=== PATIENT | male | born 1950 | race Caucasian/White ===

== ENCOUNTER 2017-02-24 14:37 | Inpatient (IN) | payer OTHER ==
[~2017-02-24] VITALS: Ht 170.2 cm; Wt 52.7 kg
[~2017-02-24 14:37] MED LIST: LACT-215 PO
--- NOTE | 2017-02-24 14:40 | NUR ---
[id number] FROM : NOT COMPLIANT WITH PSYCHE MEDS. NOT ACTING SELF. DENIES SI/HI, NAD NOTED, VSS, RESP EVEN AND UNLABORED, PUT ON MONITOR, DR DOOLEY AT BS
[2017-02-24] MEDS ORDERED: IV NS 0.9% 1,000 ML BAG IV ONE (15:00)
[2017-02-24] MEDS ORDERED: OLAN10TA3 PO (15:03)
[2017-02-24 15:13] LABS: BASOPHILS # (AUTO) 0.2 /CMM (0.0-0.2); BASOPHILS % (AUTO) 2.4 % (0.0-2.0); EOSINOPHILS # (AUTO) 0.2 /CMM (0.0-0.7); EOSINOPHILS % (AUTO) 2.7 % (0.0-6.0); HEMATOCRIT 42 % (39-51); HEMOGLOBIN 14.2 g/dL (13.5-17.5); LYMPHOCYTES # (AUTO) 0.9 /CMM (0.8-4.8); LYMPHOCYTES % (AUTO) 14.1 % (20.0-44.0); MEAN CORPUSCULAR HEMOGLOBIN 31 PG (26.0-33.0); MEAN CORPUSCULAR HGB CONC 34 g/dl (31.0-36.0); MEAN CORPUSCULAR VOLUME 92 fL (80-96); MONOCYTES # (AUTO) 0.3 /CMM (0.1-1.30); MONOCYTES % (AUTO) 5.3 % (2.0-12.0); NEUTROPHILS # (AUTO) 4.9 /CMM (1.8-8.9); NEUTROPHILS % (AUTO) 75.5 % (43.0-81.0); PLATELET COUNT (AUTO) 263 /CMM (150-450); RDW COEFFICIENT OF VARIATION 11.5 (11.5-15.0); RED BLOOD CELL COUNT(AUTO) 4.62 MIL/uL (4.5-6.0); WHITE BLOOD COUNT (AUTO) 6.5 K/uL (4.3-11.0)
[2017-02-24 15:22] LABS: CALCIUM, SERUM 10.1 mg/dL (8.5-10.1); CARBON DIOXIDE 33 mmol/L (21-32); CHLORIDE 101 mmol/L (98-107); CREATININE 1.5 mg/dL (0.6-1.3); GLUCOSE 145 mg/dL (74-106); POTASSIUM 3.4 mmol/L (3.5-5.1); SODIUM SERUM 140 mmol/L (136-145); UREA NITROGEN, BLOOD 34 mg/dL (7-18)
[2017-02-24 15:28] LABS: ACETAMINOPHEN 0 ug/ml (10-30); ALANINE AMINOTRANSFERASE 11 U/L (12-78); ALBUMIN 4.2 g/dL (3.4-5.0); ALCOHOL, BLOOD < 3 mg/dL (0-0); ALKALINE PHOSPHATASE 73 U/L (46-116); ASPARTATE AMINOTRANSFERASE 18 U/L (15-37); BILIRUBIN,DIRECT 0.3 mg/dL (0.0-0.2); BILIRUBIN,TOTAL 1.8 mg/dL (0.2-1.0); TOTAL PROTEIN, SERUM 8.2 g/dL (6.4-8.2)
[2017-02-24 15:29] LABS: SALICYLATE < 2.8 mg/dL (2.8-20.0)
--- NOTE | 2017-02-24 16:06 | NUR ---
GAGAN - CAREGIVER [phone]. JURY - SISTER [phone]
--- NOTE | 2017-02-24 16:42 | NUR ---
URINE SAMPLE SENT TO LAB
[2017-02-24 16:49] LABS: APPEARANCE,URINE Clear (CLEAR); BILIRUBIN,URINE MODERATE (NEGATIVE); BLOOD, URINE Trace-intact Ery/uL (NEGATIVE); COLOR,URINE Yellow (YELLOW); KETONES,URINE 15 (NEGATIVE); LEUKOCYTE ESTERASE ,URINE Trace (NEGATIVE); NITRITE, URINE Negative (NEGATIVE); PH,URINE 5.5 (5.0-8.0); PROTEIN,URINE 30 mg/dl (NEGATIVE); UGLUCOSE Negative (NEGATIVE)
[2017-02-24 17:04] LABS: BACTERIA,URINE None seen /HPF (None Seen); SQUAMOUS EPITHELIAL CELL,UR Few /HPF (None Seen)
[2017-02-24] MEDS ORDERED: MAGNESIUM HYDROXIDE 30 ML UDC PO PRN (17:30)
[2017-02-24] MEDS ORDERED: MAG HYDROX/AL HYDROX/SIMETH 30 ML UDC PO PRN (17:30)
[2017-02-24] MEDS ORDERED: Z GUARD REMEDY 2 OZ OINT TP PRN (17:30)
[2017-02-24] MEDS ORDERED: ZOLPIDEM TARTRATE 5 MG TABLET PO PRN (17:30)
[2017-02-24] MEDS ORDERED: ACETAMINOPHEN 325 MG TABLET PO PRN (17:30)
[2017-02-24] MEDS ORDERED: ONDANSETRON HCL/PF 4 MG/2 ML VIAL IVP PRN (17:30)
[2017-02-24] MEDS ORDERED: OLANZAPINE 10 MG VIAL IM ONE ×2 (17:30→17:34)
--- NOTE | 2017-02-24 19:30 | NUR ---
RN NOTES RECEIVED NEW ADMISSION FROM ER WITH DX OF ACUTE RENAL FAILURE, ALERT AND ORIENTED X3, SELECTIVE COMMUNICATION, NON-VERBAL AT THIS TIME, FLAT AFFECT, ABLE TO FOLLOW SIMPLE COMMANDS, CALM, NO SOB, NO RESPIRATORY DISTRESS, LUNG SOUNDS ARE CLEAR, ABDOMEN SOFT AND NON-TENDER, HYPOACTIVE BOWEL SOUNDS, SKIN IS PALE, SKIN ASSESSMENT PERFORMED, SACRAL REDNESS AND SLIGHT RIGHT HIP REDNESS, OTHERWISE OVERALL SKIN IS INTACT, NO EDEMA NOTED. ORIENTED TO SITUATION, USE OF CALL LIGHT, GIVEN SPONGE BATH, CALL LIGHT WITHIN REACH.
[2017-02-24 20:00] VITALS: BP 147/79
[2017-02-24] MEDS: ENOXAPARIN SODIUM 40 MG/0.4 ML DISP.SYRIN SQ SCH (20:56)
[2017-02-24] MEDS: IV NS 0.9% 1,000 ML IV SCH (20:56)
[2017-02-24] MEDS: OLANZAPINE 10 MG TABLET PO SCH (22:00)
--- NOTE | 2017-02-24 22:21 | NUR ---
RN NOTES ROCEPHIN 1GRAM IVP IS DELAYED, RN DENTAL TECHNOLOGIST IS GETTING MEDICATION
[2017-02-24] MEDS ORDERED: CEFTRIAXONE 2 G VIAL ONE (22:30)
[2017-02-24] MEDS ORDERED: CEFTRIAXONE 1 G VIAL ONE (22:37)
[2017-02-24] MEDS: CEFTRIAXONE 1 G in IV D5W 50 ML IV SCH (22:39)
--- NOTE | 2017-02-24 22:41 | NUR ---
RN NOTES ZYPREXA 10 MG PO HELD, GIVEN IM IN ER
[2017-02-25] VITALS: BP 100/64
[2017-02-25 04:00] VITALS: BP 107/63
[2017-02-25 06:33] LABS: EOSINOPHILS # (AUTO) 0.3 /CMM (0.0-0.7); EOSINOPHILS % (AUTO) 6.7 % (0.0-6.0); HEMATOCRIT 33 % (39-51); HEMOGLOBIN 11.4 g/dL (13.5-17.5); LYMPHOCYTES # (AUTO) 1.5 /CMM (0.8-4.8); LYMPHOCYTES % (AUTO) 33.8 % (20.0-44.0); MEAN CORPUSCULAR HEMOGLOBIN 32 PG (26.0-33.0); MEAN CORPUSCULAR HGB CONC 34 g/dl (31.0-36.0); MEAN CORPUSCULAR VOLUME 92 fL (80-96); MONOCYTES # (AUTO) 0.2 /CMM (0.1-1.30); MONOCYTES % (AUTO) 5.6 % (2.0-12.0); NEUTROPHILS # (AUTO) 2.3 /CMM (1.8-8.9); NEUTROPHILS % (AUTO) 52.9 % (43.0-81.0); PLATELET COUNT (AUTO) 194 /CMM (150-450); RDW COEFFICIENT OF VARIATION 12.5 (11.5-15.0); RED BLOOD CELL COUNT(AUTO) 3.61 MIL/uL (4.5-6.0); WHITE BLOOD COUNT (AUTO) 4.4 K/uL (4.3-11.0)
[2017-02-25] MEDS: IV NS 0.9% 1,000 ML IV SCH ×2 (06:50→11:53)
--- NOTE | 2017-02-25 06:52 | NUR ---
RN NOTES PATIENT ASLEEP, EASILY AROUSEABLE BY TOUCH AND VOICE, NO SOB, NO DISTRESS, NO BEHAVIOR DISTURBANCE DURING SHIFT, SLEPT FOR 8.5 HOURS, SELECTIVE COMMUNICATION, SMILES AND NODS WITH OCCASIONAL "HI". RIGHT AC PERIPHERAL LINE IS PATENT AND INFUSING WELL. NEEDS ATTENDED, CALL LIGHT WITHIN REACH.
[2017-02-25 06:54] LABS: CALCIUM, SERUM 8.3 mg/dL (8.5-10.1); CREATININE 1.1 mg/dL (0.6-1.3); MAGNESIUM 1.6 mg/dL (1.8-2.4); POTASSIUM 3.2 mmol/L (3.5-5.1)
--- NOTE | 2017-02-25 06:54 | NUR ---
RN NOTES IV NS 0.9 AT 75 CC /HR, NOT GIVEN, OLD BAG STILL INFUSING
[2017-02-25 08:00] VITALS: BP 100/66
--- NOTE | 2017-02-25 08:08 | NUR ---
MS RN NOTESX PATIENT IN BED, SLEEPING. AROUSES EASILY. A/O X2-3. ON ROOM AIR, NO SOB. BREAKFAST SERVED, PREFERS NOT TO EAT AT THIS TIME. WILL CONT TO ENCOURAGE AND OFFER FOOD. PLACE CALL LIGHT WITHIN REACH.
--- NOTE | 2017-02-25 08:51 | NUR ---
PATIENT STILL SLEEPING, AROUSES EASILY. ENCOURAGED TO WAKE UP AND EAT BREAKFAST, EYES CLOSING WHEN APPROACHED BY THE NURSE. WILL CONT TO MONITOR.
[2017-02-25 09:00] VITALS: BP 100/66
[2017-02-25] MEDS: POTASSIUM CHLORIDE 20 MEQ TAB.PRT.SR PO SCH ×2 (10:00→11:00)
[2017-02-25] MEDS: Magnesium 1GM/D5W 100ML PREMIX 100 ML IV SCH ×2 (10:09→11:09)
--- NOTE | 2017-02-25 10:17 | NUR ---
PATIENT IS SEEN BY DR. MALONE, PATIENT APPEARS AWAKE BUT EYES CLOSE AND NOT PERMITTING TO OPEN TO COMMUNICATE WHEN ASK. PATIENT REFUSING POTASSIUM TAB. ORAL. WILL CHANGE TO IV, NOTIFIED PHARMACY.
--- NOTE | 2017-02-25 11:40 | NUR ---
POTASSIUM ORAL TAB NON ADMINISTERED, PATIENT REFUSED. WILL ADMINISTER POTASSIUM IV FOR REPLACEMENT LOW POTASSIUM LEVEL.
--- NOTE | 2017-02-25 12:04 | NUR ---
PATIENT IS SEEN BY RACHEL RAY FOR CONSULT. REPOSITION PATIENT, PATIENT IS AWAKE, DOES NOT MAKE EYE CONTACT TO NURSES, HOB ELEVATED. LUNCH IS SERVED, OFFER FOOD TO EAT, LICENSED NURSE AND FOREST ECOLOGY PROFESSOR ATTEMPTED TO FEED THE PATIENT BUT REFUSED TO OPEN MOUTH TO RECEIVED FOOD. DR. FORBES WAS INFORMED.
[2017-02-25] MEDS: POTASSIUM CL. PREMIX PERIPHER. 50 ML IV SCH ×2 (12:16→13:21)
--- NOTE | 2017-02-25 15:17 | NUR ---
PATIENT DID NOT EAT HIS LUNCH/MEAL. OFFERED SNACK CHOCOLATE PUDDING AND JUICE TO DRINK, PATIENT SEEMS AWARE, GAVE HIS SMILE BUT NOT SPEAKING OUT OR VOICING OUT HIS NEEDS. APPEARS WEAK, CALM AND RELAX. WILL CONT TO MONITOR.
[2017-02-25 16:00] VITALS: BP 113/60
--- NOTE | 2017-02-25 16:08 | NUR ---
ASSISTED PATIENT TO THE BATHROOM, HAD BOWEL MOVEMENT, SMALL AMT. BROWN COLOR. PATIENT IS AMBULATORY WITH STEADY GAIT. ASSISTED BACK TO BED, OFFERED JUICE TO DRINK, BUT PATIENT SIPS ONLY.
--- NOTE | 2017-02-25 18:40 | NUR ---
MS RN CLOSING NOTES PATIENT SITTING UP IN BED, ENCOURAGED GIVEN DURING THE SHIFT BUT PATIENT STILL NON COMPLIANT WITH CARE. SPIT OUT FOOD WHEN FED. IV IN RIGHT AC G20 PATENT AND INTACT, IVF NS INFUSING AT 75ML/HR, TOLERATING WELL, NO SOB. MAGNESIUM AND POTASSIUM REPLACED. PLACE CALL LIGHT WITHIN REACH, BED LOW AND LOCKED, INSTRUCTED TO USE CALL LIGHT IF HE NEEDS ASSISTANCE, PATIENT REMAINS NON COMMUNICATIVE. WILL ENDORSE TO PROFESSOR OF ENGLISH RN FOR TALAT.
[2017-02-25 20:00] VITALS: BP 114/68
--- NOTE | 2017-02-25 20:00 | NUR ---
RN NOTES PATIENT IN BED, ALERT AND AWAKE, CALM, NO SOB, TOLERATING ROOM AIR, SPO2 97%, LUNG SOUNDS ARE CLEAR, UNABLE TO VERBALIZE NEEDS, SELECTIVELY MUTE, SMILES AND NODS WITH OCCASIONAL GREETINGS. RIGHT AC PERIPHERAL LINE IS PATENT AND INFUSING WELL, ON FALL PRECAUTION, BED ALARM TURNED ON. KEPT SAFE AND COMFORTABLE, CALL LIGHT WITHIN REACH.
[2017-02-25] MEDS: CEFTRIAXONE 1 G in IV D5W 50 ML IV SCH (20:12)
[2017-02-25] MEDS: ENOXAPARIN SODIUM 40 MG/0.4 ML DISP.SYRIN SQ SCH (20:59)
[2017-02-25] MEDS: OLANZAPINE 10 MG TABLET PO SCH (21:36)
[2017-02-25] MEDS ORDERED: OLANZAPINE 10 MG VIAL IM PRN (22:00)
[2017-02-26] MEDS: IV NS 0.9% 1,000 ML IV SCH ×2 (01:39→20:54)
--- NOTE | 2017-02-26 07:12 | NUR ---
PATIENT IN BED, ALERT AND AWAKE, NON-VERBAL, CALM, NO SOB, NO RESPIRATORY DISTRESS, NO COMPLAIN OF PAIN, COOPERATIVE WITH NURSING CARE, REFUSING PO MEDICATION AT TIMES, ABLE TO AMBULATE TO THE TOILET WITH SUPERVISION, NEEDS ATTENDED, CALL LIGHT WITHIN REACH.
[2017-02-26 07:19] LABS: CALCIUM, SERUM 8.3 mg/dL (8.5-10.1); POTASSIUM 3.5 mmol/L (3.5-5.1)
--- NOTE | 2017-02-26 07:59 | NUR ---
MS RN NOTES PATIENT IN BED, SLEEPING AROUSES EASILY. BREATHING EVEN AND NON LABORED, APPEARS COMFORTABLE IN POSITION. IV NS INFUSING AT 75ML/HR, NO SOB. SAFETY MEASURES PROVIDED, BED LOW AND LOCKED. SIDE RAILS UP X2. WILL CONT TO MONITOR. CALL LIGHT WITHIN REACH.
[2017-02-26 08:00] VITALS: BP_SYST 116; BP_DIAS 57; BP_DIAS 71
--- NOTE | 2017-02-26 08:43 | NUR ---
ASSISTED PATIENT TO SIT UP AND EAT BREAKFAST. EYES WIDE OPEN, SMILE AT ONCE. ATTEMPTED TO FEED PATIENT, BUT KEEPING MOUTH CLOSE TIGHT AND NOT ACCEPTING FOOD OR FLUIDS BEING OFFERED. INSTRUCTED TO USE CALL LIGHT IF HE NEEDS ASSISTANCE.
--- NOTE | 2017-02-26 10:15 | NUR ---
PATIENT STARTING TO EAT BY HIMSELF, ATE A PORTION OF THE OATMEAL AND SMALL AMOUNT OF VANILLA PUDDING. PATIENT OCCASIONALLY SMILE, OFFERED CHOCOLATE PUDDING AND APPLE JUICE. APPEARS CALM AND RELAX.
--- NOTE | 2017-02-26 10:44 | NUR ---
PATIENT IS SEEN BY DR. BENDER. PATIENT TO BE DISCHARGED TO PSYHE UNIT ORDERED.
--- NOTE | 2017-02-26 11:00 | NUR ---
CHANGED OF SERVICE, PATIENT IS UNDER DR. YULIA WHITE, NOTIFIED DR. MALONE. CHARGE NURSE INFORMED.
--- NOTE | 2017-02-26 12:18 | NUR ---
RECEIVED PHONE CALL FROM [facility] CRISIS TEAM. PATIENT IS NOT BEING ACCEPTED TO PSYCH UNIT AT THIS TIME DUE TO PATIENT NOT CONSISTENTLY EATING HIS MEALS. CALLED DR. FORBES,PSYCH LEFT MESSAGE TO HIS VOICEMAIL, CHARGE NURSE IS AWARE.
[2017-02-26 16:00] VITALS: BP 141/79
--- NOTE | 2017-02-26 18:40 | NUR ---
MS RN CLOSING NOTES PER CM PATIENT WILL STAY FOR HOSPITALIZATION AT THE MOMENT UNTIL PLACEMENT IS AVAILABLE. DR. BENDER WAS INFORMED PER CHARGE NURSE. PATIENT COMFORTABLY IN POSITION, IVF NS INFUSING AT 75ML/HR, TOLERATING WELL, NO SOB. NURSING CARE PROVIDED, AMBULATED AND ASSIST TO THE BATHROOM. SMILE ONCE IN A WHILE. HAS VERY POOR APPETITE, CONSUMED ONLY 30% OF HIS MEALS DURING THE SHIFT. PLACE CALL LIGHT WITHIN REACH, BED LOW AND LOCKED, INSTRUCTED TO USE CALL LIGHT IF HE NEEDS ASSISTANCE, WILL ENDORSE TO SUBWAY TRAIN DRIVER RN FOR TALAT.
--- NOTE | 2017-02-26 19:30 | NUR ---
MS RN NOTES PATIENT IN BED, SLEEPING AROUSES EASILY. BREATHING EVEN AND NON LABORED, APPEARS COMFORTABLE. IV NS INFUSING AT 75ML/HR, NO SOB. SAFETY MEASURES PROVIDED, BED LOW AND LOCKED. SIDE RAILS UP X2. WILL CONT TO MONITOR. CALL LIGHT WITHIN REACH.
[2017-02-26 20:00] VITALS: BP 122/69
[2017-02-26] MEDS: CEFTRIAXONE 1 G in IV D5W 50 ML IV SCH (20:54)
[2017-02-26] MEDS: OLANZAPINE 10 MG TABLET PO SCH (20:54)
[2017-02-26] MEDS: ENOXAPARIN SODIUM 40 MG/0.4 ML DISP.SYRIN SQ SCH (20:55)
[2017-02-26 22:00] VITALS: BP 122/69
--- NOTE | 2017-02-27 06:36 | NUR ---
MS RN NOTE PATIENT STABLE. ALL NEEDS MET AND ATTENDED TO. IV SITE INTACT WITH FLUIDS RUNNING ORDERED. WILL ENDORSE TO DAY SHIFT FOR TALAT.
[2017-02-27 08:00] VITALS: BP 100/57
--- NOTE | 2017-02-27 08:00 | NUR ---
RN NOTES RECEIVED PATIENT IN THE ROOM RESTING IN THE BED, NO RESPIRATORY, NO ACUTE DISTRESS AT THIS TIME, ENCOURAGED TO EXPRESS FEELINGS AND CONCERNS, PT UNKEMPT , SELECTIVELY MUTE. IV LINE ON RIGHT AC AREA INTACT INFUSING NS 75 ML/HR, ENCOURAGED TO EXPRESS FEELINGS AND CONCERNS. ASSIST BATHROOM, ENCOURAGED TO INCREASE FLUID INTAKE TOLERATED. PATIENT TURN AND REPOSITION SELF IN THE BED. ENCOURAGED TO EAT BREAKFASR. CALL LIGHT WITHIN TO REACH, SAFETY PRECAUTION MAINTAINED ALL THE TIME.
--- NOTE | 2017-02-27 11:00 | NUR ---
RN NOTES PATIENT IN THE BED, NO ACUTE DISTRESS, PRIVET PSYCH THERAPIST NEXT TO THE BED, STILL MOOT, NO SELF DISCLOSURE , CALL LIGHT WITHIN TO REACH, SAFETY PRECAUTION MAINTAINED ALL THE TIME. CONTINUED MONITORING.
--- NOTE | 2017-02-27 11:08 | NUR ---
WOUND CARE CONSULT: PT DOES NOT SPEAK AND IS NOT MOVING AT THIS TIME. CONTINUE ALL SKIN PROTECTION MEASURES INCLUDING TURN/REPOSITION EVERY 2 HRS PT CONDITION PERMITS, FLOAT HEELS. DISCUSSED WITH NURSING STAFF. PT NOTED TO HAVE SCARRING TO SACRUM, RT HIP AND RT LATERAL ANKLE. WILL SEE PRN. BARRON IN AGREEMENT WITH PLAN OF CARE. Addendum: 02/27/17 at 1110 by MONCHO EPSTEIN WNDNU Amended: Links added.
[2017-02-27] MEDS: IV NS 0.9% 1,000 ML IV SCH (14:15)
--- NOTE | 2017-02-27 15:21 | NUR ---
RN NOTES PATIENT IN THE BED, SELECTIVELY MOOT, NO ACUTE DISTRESS, NO RESPIRATORY DISTRESS, V/S STABLE, RUNNING IV ON LEFT AC AREA INTACT NS AT 75 ML/HR, INTACT, ASSIST PATIENT ADL'S, AND BATHROOM, CALL LIGHT WITHIN TO REACH, SAFETY PRECAUTION MAINTAINED ALL THE TIME. CONTINUED MONITORING.
[2017-02-27 16:00] VITALS: BP 124/73
--- NOTE | 2017-02-27 17:30 | NUR ---
RN NOTES CALLED AND LEFT MASSAGE PATIENT FAMILY ABOUT D/C PLANING HOME TODAY. SW, AND CHARGE NURSE AWARE OF. WAITING RESPOND.
--- NOTE | 2017-02-27 19:00 | NUR ---
RN NOTES RECEIVED CALL FROM PATIENT'S SISTER NAME TAYLER, AND SISTER NOTIFIED UNABLE TO COME TODAY BECAUSE LIVING FAR TO OTHER SPATIAL SCIENTIST PATIENT. ALSO SISTER STATE" CARE GIVE AVAILABLE TOMORROW AT 1530 TO 1600 TO OTHER SPATIAL SCIENTIST PATENT". CHARGE NURSE AWARE OF . CALLED AND LEFT MASSAGE SW TO FOLLOW UP TOMORROW.
--- NOTE | 2017-02-27 19:10 | NUR ---
RN NOTES PATIENT IN THE BED, NO ACUTE DISTRESS, NO RESPIRATORY DISTRESS, STABLE, RUINING IV ON RIGHT AC AREA NS AT 75 ML/HR, INTACT. ASSIST PATIENT ADL'S, AND BATHROOM. CALL LIGHT WITHIN TO REACH, SAFETY PRECAUTION MAINTAINED AL THE TIME WITH HELP OF BURNER MACHINE OPERATOR. ENDORSED ONCOMING NURSE FOR CONTINUATION OF CARE.
--- NOTE | 2017-02-27 20:23 | NUR ---
Patient recieved easily awakened no eye contact when asked a question refused to answer. Callight withen reach and revieved with patient skin warm and dry
[2017-02-27 20:59] VITALS: BP 121/75
[2017-02-27] MEDS: CEFTRIAXONE 1 G in IV D5W 50 ML IV SCH (21:00)
[2017-02-27] MEDS: OLANZAPINE 10 MG TABLET PO SCH (21:28)
[2017-02-27] MEDS: ENOXAPARIN SODIUM 40 MG/0.4 ML DISP.SYRIN SQ SCH (21:31)
[2017-02-27 23:36] VITALS: BP 121/75
[2017-02-28] MEDS: IV NS 0.9% 1,000 ML IV SCH ×2 (01:04→15:20)
--- NOTE | 2017-02-28 06:24 | NUR ---
Patient slept thru the night .. Noted will not stay on the left side to sleep will pull out the pillows and turn himself to the right.. Must encourage him to drin and swalloe. Didn't speak the whole night but did follow directions
[2017-02-28 08:00] VITALS: BP 120/66
[2017-02-28 16:00] VITALS: BP 117/75
--- NOTE | 2017-02-28 16:15 | NUR ---
SW received a call from telephonic case manager Carolina Segovia informing SW that pt's sister has not picked up pt. as of yet and is neglecting their phone calls after making several attempts and leaving messages. Pt's sister Tracy is not calling back. SW filed [place] APS [place] ([place] [id number]) for neglect.
--- NOTE | 2017-02-28 19:26 | NUR ---
MS RN CLOSING NOTE PATIENT IS ALERT AND ORIENTED x1. NO PAIN AT THIS TIME. NO SOB OR DISTRESS NOTED. CALL LIGHT WITHIN REACH AT ALL TIMES. SAFETY MEASURES IMPLEMENTED. ALL NURSING CARE NEEDS ATTENDED TO. IV REMOVED, SKIN INTACT. PATIENT IS NON-VERBAL. PATIENT TO BE PICKED UP BY CAREGIVER TO GO HOME. ALL DISCHARGE PAPERWORK DONE, ALL BELONGINGS AT BEDSIDE, CAREGIVER-ALEXI WILL TAKE PATIENT HOME. ENDORSE DISCHARGE TO [facility] TECHNICIAN NURSE
--- NOTE | 2017-02-28 19:50 | NUR ---
Patient discharged to private car in the care of a caregiver. He is alert flt affect will follow instructions when spoken to directly to his face and one instruction at a time. Ambulated lev figueroa assist. All paperwork for this dischardge with the caregiver. Dressed pt in his own clothe and he assisted this. seatbelt on . laboratory animal caretaker is taking him home. she is in contact with the sister.
== END 2017-02-28 20:20 | disposition home or self-care (01) | DRG 469 ==
LOC: ER 14:38 → TELE 18:38 → MED 19:56 → TELE 19:59 → MED 02-25 04:26
PROVIDERS: ADMIT Internal Medicine; ATTEND Internal Medicine
DX: N17.0 Acute kidney failure with tubular necrosis (principal); G92 Toxic encephalopathy; F20.0 Paranoid schizophrenia; E83.42 Hypomagnesemia; N39.0 Urinary tract infection, site not specified; E86.0 Dehydration; E87.6 Hypokalemia; D63.8 Anemia in other chronic diseases classified elsewhere; K21.9 Gastro-esophageal reflux disease without esophagitis; F41.9 Anxiety disorder, unspecified; Z91.19 Patient's noncompliance with other medical treatment and regimen; F32.9 Major depressive disorder, single episode, unspecified
CPT/HCPCS: 36415; 70450-TC; 71010-TC; 80048-TC; 80076-TC; 80305; 81000-TC; 83735-TC; 84100-TC; 85025-TC; 87081-TC; A4606; G0480; J0696; J1650; J3475; J3480; J3490; J7030; J7060; Z7610